=== PATIENT | female | born 1985 | race Two or more races ===

== ENCOUNTER 2017-06-08 20:13 | Emergency (ER) | payer MEDICAID ==
[~2017-06-08] VITALS: Ht 154.9 cm; Wt 96.1 kg
[~2017-06-08 20:13] MED LIST: DIPH1TAB PO; NAPR500T4 PO; NITR100C6 PO; ONDA8TAB9 PO; PHEN-873 PO
[2017-06-08 20:54] LABS: CLARITY,URINE CLEAR (Clear); COLOR,URINE STRAW (Yellow); GLUCOSE, URINE NEGATIVE (Neg); KETONES,URINE NEGATIVE (Neg); LEUKOCYTE ESTERASE ,URINE NEGATIVE (Neg); NITRITES, URINE NEGATIVE (Neg); OCCULT BLOOD,URINE MODERATE (Neg); PROTEIN,URINE NEGATIVE (Neg); UROBILINOGEN,URINE 0.2 E.U/dL (0.2-1.0)
[2017-06-08 20:55] LABS: UA COLLECTION TYPE CLN CATCH MIDSTREAM
[2017-06-08 20:57] LABS: URINE HCG NEGATIVE (NEG)
[2017-06-08 21:06] LABS: BACTERIA,URINE 1+ /HPF (Neg); SQUAMOUS EPITHELIAL CELL,UR MANY /LPF (FEW); WBC,URINE 0-4 /HPF (0-4)
[2017-06-08 21:07] LABS: MUCUS STRANDS NONE SEEN /LPF (Neg)
[2017-06-08] MEDS ORDERED: PHEN-824 PO (22:22)
[2017-06-08 22:30] VITALS: BP 120/73
== END 2017-06-08 22:31 | disposition home or self-care (01) ==
LOC: ER 20:14
DX: O26.893 Other specified pregnancy related conditions, third trimester (principal); R30.0 Dysuria; Z3A.29 29 weeks gestation of pregnancy
CPT/HCPCS: 81001; 81025; 99284

== ENCOUNTER 2017-11-08 18:54 | Emergency (ER) | payer MEDICAID ==
[~2017-11-08] VITALS: Ht 154.9 cm; Wt 95.0 kg
[~2017-11-08 18:54] MED LIST changes: +NAPR-996 PO; -NAPR500T4 PO; +PHEN-824 PO
[2017-11-08 19:04] VITALS: BP 124/78
[2017-11-08] MEDS ORDERED: hydrocortisone 1% cream 28gm TP SCH (20:00)
[2017-11-08] MEDS ORDERED: cephalexin 500mg capsule PO ONE (20:10)
[2017-11-08] MEDS ORDERED: CEPH-572 PO (20:11)
[2017-11-08] MEDS ORDERED: TRIA15CR61 TOP (20:11)
== END 2017-11-08 20:28 | disposition home or self-care (01) ==
LOC: ER 18:55
DX: L03.115 Cellulitis of right lower limb (principal); L40.9 Psoriasis, unspecified; G43.909 Migraine, unspecified, not intractable, without status migrainosus; Z88.0 Allergy status to penicillin; Z88.1 Allergy status to other antibiotic agents; Z91.030 Bee allergy status; Z91.011 Allergy to milk products; Z91.018 Allergy to other foods; Z79.899 Other long term (current) drug therapy
CPT/HCPCS: 99283

== ENCOUNTER 2018-08-21 12:34 | Emergency (ER) | payer MEDICAID ==
[~2018-08-21] VITALS: Ht 154.9 cm; Wt 99.5 kg
[~2018-08-21 12:34] MED LIST changes: +IBUP-1986 PO; +PHEN-786 PO; -PHEN-873 PO
[2018-08-21 12:43] VITALS: BP 131/75
[2018-08-21] MEDS ORDERED: PERM60CR4 TOP (13:06)
== END 2018-08-21 13:48 | disposition home or self-care (01) ==
LOC: ER 12:35
DX: S90.862A Insect bite (nonvenomous), left foot, initial encounter (principal); S90.861A Insect bite (nonvenomous), right foot, initial encounter; G43.909 Migraine, unspecified, not intractable, without status migrainosus; Z88.0 Allergy status to penicillin; Z91.030 Bee allergy status; Z88.6 Allergy status to analgesic agent; Z91.018 Allergy to other foods; Z88.1 Allergy status to other antibiotic agents; Z88.8 Allergy status to other drugs, medicaments and biological substances; Z79.899 Other long term (current) drug therapy; W57.XXXA Bitten or stung by nonvenomous insect and other nonvenomous arthropods, initial encounter; Y93.89 Activity, other specified; Y92.89 Other specified places as the place of occurrence of the external cause; Y99.8 Other external cause status
CPT/HCPCS: 99283

== ENCOUNTER 2019-07-08 23:22 | Emergency (ER) | payer MEDICAID ==
[~2019-07-08] VITALS: Ht 154.9 cm; Wt 100.0 kg
[~2019-07-08 23:22] MED LIST changes: +PERM60CR4 TOP
[2019-07-09] MEDS ORDERED: ketorolac trometh inj. 60 MG/2 ML VIAL IM ONE (01:20)
[2019-07-09] MEDS ORDERED: HYDROcodone/acetaminophen 5mg/325mg tablet PO ONE (01:20)
[2019-07-09 03:58] LABS: CLARITY,URINE SLIGHTLY CLOUDY (Clear); COLOR,URINE YELLOW (Yellow); GLUCOSE, URINE NEGATIVE (Neg); KETONES,URINE NEGATIVE (Neg); LEUKOCYTE ESTERASE ,URINE NEGATIVE (Neg); NITRITES, URINE NEGATIVE (Neg); OCCULT BLOOD,URINE TRACE-INTACT (Neg); PH,URINE 7.5 (4.8-8.0); PROTEIN,URINE NEGATIVE (Neg); URINE HCG NEGATIVE (NEG); UROBILINOGEN,URINE 0.2 E.U/dL (0.2-1.0)
[2019-07-09 04:15] LABS: UA COLLECTION TYPE CLN CATCH MIDSTREAM
[2019-07-09 04:31] LABS: AMORPHOUS PHOSPHATES 2+; BACTERIA,URINE 1+ /HPF (Neg); MUCUS STRANDS MANY /LPF (Neg); RBC,URINE 0-2 /HPF (0-2); SQUAMOUS EPITHELIAL CELL,UR MODERATE /LPF (FEW); WBC,URINE 0-4 /HPF (0-4)
[2019-07-09] MEDS ORDERED: DICL50TA8 PO (05:22)
[2019-07-09 05:30] VITALS: BP 112/61
== END 2019-07-09 05:34 | disposition home or self-care (01) ==
LOC: ER 23:24
DX: R10.2 Pelvic and perineal pain (principal); R10.32 Left lower quadrant pain; G43.909 Migraine, unspecified, not intractable, without status migrainosus; Z88.0 Allergy status to penicillin; Z91.030 Bee allergy status; Z91.011 Allergy to milk products; Z88.1 Allergy status to other antibiotic agents
CPT/HCPCS: 74176; 81001; 81025; 96372; 99284; J1885

== ENCOUNTER 2021-02-15 23:24 | Emergency (ER) | payer MEDICAID ==
[~2021-02-15] VITALS: Ht 154.9 cm; Wt 97.3 kg
[~2021-02-15 23:24] MED LIST changes: +DICL50TA8 PO
[2021-02-15 23:55] VITALS: BP 111/71
[2021-02-16 00:44] LABS: URINE HCG NEGATIVE (NEG)
[2021-02-16 01:01] LABS: CLARITY,URINE SLIGHTLY CLOUDY (Clear); COLOR,URINE YELLOW (Yellow); GLUCOSE, URINE NEGATIVE (Neg); KETONES,URINE NEGATIVE (Neg); LEUKOCYTE ESTERASE ,URINE NEGATIVE (Neg); NITRITES, URINE NEGATIVE (Neg); OCCULT BLOOD,URINE SMALL (Neg); PROTEIN,URINE NEGATIVE (Neg); UA COLLECTION TYPE CLN CATCH MIDSTREAM; UROBILINOGEN,URINE 0.2 E.U/dL (0.2-1.0)
[2021-02-16 01:24] LABS: MUCUS STRANDS MANY /LPF (Neg); SQUAMOUS EPITHELIAL CELL,UR MODERATE /LPF (FEW)
[2021-02-16 01:26] LABS: BACTERIA,URINE FEW /HPF (Neg); WBC,URINE 0-4 /HPF (0-4)
== END 2021-02-16 01:39 | disposition home or self-care (01) ==
LOC: ER 23:25
DX: R30.0 Dysuria (principal); R31.9 Hematuria, unspecified; G43.909 Migraine, unspecified, not intractable, without status migrainosus; Z88.0 Allergy status to penicillin; Z91.030 Bee allergy status; Z91.018 Allergy to other foods; Z88.1 Allergy status to other antibiotic agents; Z88.8 Allergy status to other drugs, medicaments and biological substances
CPT/HCPCS: 81001; 81025; 87210; 99283; 99284

== ENCOUNTER 2021-03-03 19:19 | Emergency (ER) | payer MEDICAID ==
[~2021-03-03] VITALS: Ht 154.9 cm; Wt 97.3 kg
[2021-03-04 01:07] VITALS: BP 139/91
[2021-03-04] MEDS ORDERED: SULF1TAB49 PO (01:34)
[2021-03-04] MEDS ORDERED: DOXY100C76 PO (01:34)
[2021-03-04] MEDS ORDERED: DOXYCYCLINE 100MG CAPSULE PO STA (01:34)
[2021-03-04] MEDS ORDERED: sulfamethoxazole/trimethoprim DS (800/160mg) tablet PO ONE (01:35)
[2021-03-04] MEDS ORDERED: acetaminophen 325mg tablet PO ONE (01:35)
[2021-03-04] MEDS ORDERED: bacitracin 15gm ointment TP ONE (01:35)
== END 2021-03-04 02:01 | disposition home or self-care (01) ==
LOC: ER 19:20
DX: S81.852A Open bite, left lower leg, initial encounter (principal); G43.909 Migraine, unspecified, not intractable, without status migrainosus; Z88.0 Allergy status to penicillin; Z91.018 Allergy to other foods; Z91.011 Allergy to milk products; Z91.030 Bee allergy status; Z88.6 Allergy status to analgesic agent; W54.0XXA Bitten by dog, initial encounter; Y93.89 Activity, other specified; Y92.89 Other specified places as the place of occurrence of the external cause; Y99.8 Other external cause status
CPT/HCPCS: 99283

== ENCOUNTER 2021-04-25 08:51 | Emergency (ER) | payer MEDICAID ==
[~2021-04-25] VITALS: Ht 154.9 cm; Wt 101.0 kg
[2021-04-25 08:55] VITALS: BP 123/74
== END 2021-04-25 10:43 | disposition home or self-care (01) ==
LOC: ER 08:52
DX: J44.9 Chronic obstructive pulmonary disease, unspecified (principal); G43.909 Migraine, unspecified, not intractable, without status migrainosus; R06.02 Shortness of breath; R05.9 Cough, unspecified; R50.9 Fever, unspecified; Z88.0 Allergy status to penicillin; Z91.030 Bee allergy status; Z88.8 Allergy status to other drugs, medicaments and biological substances; Z91.018 Allergy to other foods; Z79.899 Other long term (current) drug therapy
CPT/HCPCS: 71045; 93005; 99283

== ENCOUNTER 2021-05-08 19:46 | Emergency (ER) | payer MEDICAID ==
[~2021-05-08] VITALS: Ht 154.9 cm; Wt 101.8 kg
[2021-05-08 20:30] VITALS: BP 128/69
[2021-05-08] MEDS ORDERED: benzonatate 100mg capsule PO ONE (20:55)
[2021-05-08] MEDS ORDERED: BENZ-38 PO (20:58)
== END 2021-05-08 21:50 | disposition home or self-care (01) ==
LOC: ER 19:47
DX: R05.9 Cough, unspecified (principal); R09.81 Nasal congestion; R09.82 Postnasal drip; R04.2 Hemoptysis; J44.9 Chronic obstructive pulmonary disease, unspecified; G43.909 Migraine, unspecified, not intractable, without status migrainosus; Z88.0 Allergy status to penicillin; Z91.041 Radiographic dye allergy status; Z91.018 Allergy to other foods; Z91.030 Bee allergy status; Z91.011 Allergy to milk products; Z88.2 Allergy status to sulfonamides; Z79.899 Other long term (current) drug therapy
CPT/HCPCS: 70486; 71045; 99284

== ENCOUNTER 2021-06-20 21:09 | Emergency (ER) | payer MEDICAID ==
[~2021-06-20] VITALS: Ht 154.9 cm; Wt 96.8 kg
[2021-06-20 21:57] LABS: URINE HCG NEGATIVE (NEG)
[2021-06-20 22:26] LABS: CLARITY,URINE SLIGHTLY CLOUDY (Clear); COLOR,URINE YELLOW (Yellow); GLUCOSE, URINE NEGATIVE (Neg); KETONES,URINE TRACE mg/dl (Neg); LEUKOCYTE ESTERASE ,URINE NEGATIVE (Neg); NITRITES, URINE NEGATIVE (Neg); OCCULT BLOOD,URINE NEGATIVE (Neg); PROTEIN,URINE NEGATIVE (Neg); UROBILINOGEN,URINE 0.2 E.U/dL (0.2-1.0)
[2021-06-20 22:27] LABS: UA COLLECTION TYPE CLN CATCH MIDSTREAM
[2021-06-20 22:42] LABS: BACTERIA,URINE 2+ /HPF (Neg); MUCUS STRANDS MANY /LPF (Neg); RBC,URINE NONE SEEN /HPF (0-2); SQUAMOUS EPITHELIAL CELL,UR MANY /LPF (FEW); WBC,URINE 0-4 /HPF (0-4)
[2021-06-20 22:44] VITALS: BP 96/58
[2021-06-21 00:23] LABS: ALANINE AMINOTRANSFERASE 26 U/L (12-78); ALBUMIN 3.5 G/DL (3.4-5.0); ALKALINE PHOSPHATASE 85 IU/L (46-116); ANION GAP 8 (8-16); ASPARTATE AMINO TRANSFERASE 16 U/L (10-37); BILIRUBIN,DIRECT 0.1 MG/DL (0-0.3); BILIRUBIN,TOTAL 0.4 MG/DL (0.1-1.0); BLOOD UREA NITROGEN 13 MG/DL (7-18); BUN/CREATININE RATIO 18.1 (6.6-38.0); CALCIUM 8.9 MG/DL (8.5-10.1); CHLORIDE 106 MMOL/L (99-107); CREATININE 0.72 MG/DL (0.40-0.90); GLUCOSE 111 MG/DL (70-104); LIPASE 212 U/L (73-393); POTASSIUM 3.8 MMOL/L (3.5-5.1); SODIUM 142 MMOL/L (135-145); TOTAL CARBON DIOXIDE 27.9 MMOL/L (24-32); eGFR > 90 ML/MIN
[2021-06-21 00:28] LABS: BASOPHILS # (AUTO) 0.1 X10'3 (0-0.2); BASOPHILS % (AUTO) 1.2 % (0-1); EOSINOPHILS # (AUTO) 0.2 X10'3 (0-0.9); EOSINOPHILS % (AUTO) 2.2 % (0-6); HEMOGLOBIN 13.4 g/dl (12.0-16.0); LYMPHOCYTES # (AUTO) 3.9 X10'3 (1.1-4.8); LYMPHOCYTES % (AUTO) 34.3 % (21-51); MEAN CORPUSCULAR HEMOGLOBIN 26.9 PG (27.0-31.0); MEAN CORPUSCULAR HGB CONC 32.8 g/dL (33.0-36.5); MEAN PLATELET VOLUME 9.1 FL (7.4-10.4); MONOCYTES # (AUTO) 0.9 X10'3 (0-0.9); MONOCYTES % (AUTO) 8.2 % (2-12); NEUTROPHILS # (AUTO) 6.1 X10'3 (1.8-7.7); NEUTROPHILS % (AUTO) 54.1 % (42-75); PLATELET COUNT 323 X10'3 (140-440); RED CELL DISTRIBUTION WIDTH 14.3 % (11.5-14.5); WHITE BLOOD COUNT 11.3 X10'3 (4.5-11.0)
[2021-06-21] MEDS ORDERED: SULF1TAB49 PO (01:02)
[2021-06-21] MEDS ORDERED: sulfamethoxazole/trimethoprim DS (800/160mg) tablet PO ONE (01:05)
== END 2021-06-21 01:15 | disposition home or self-care (01) ==
LOC: ER 21:10
DX: D30.02 Benign neoplasm of left kidney (principal); N39.0 Urinary tract infection, site not specified; G43.909 Migraine, unspecified, not intractable, without status migrainosus; J44.9 Chronic obstructive pulmonary disease, unspecified; Z88.0 Allergy status to penicillin; Z91.030 Bee allergy status; Z88.8 Allergy status to other drugs, medicaments and biological substances; Z88.1 Allergy status to other antibiotic agents
CPT/HCPCS: 36415; 74176; 80048; 80076; 81001; 81025; 83690; 85025; 99284

== ENCOUNTER 2021-07-16 21:58 | Emergency (ER) | payer MEDICAID ==
[~2021-07-16] VITALS: Ht 154.9 cm; Wt 100.7 kg
--- NOTE | 2021-07-16 23:27 | NUR ---
patient in the er with complaitns of left shoulder pain that came ion gradually, denies trauma or falls , staes thatpain is a 6/10 , deneis taking any medication . denies any ortho history
[2021-07-16] MEDS ORDERED: ketorolac trometh inj. 60 MG/2 ML VIAL IM ONE (23:30)
[2021-07-16] MEDS ORDERED: IBUP-1986 PO (23:45)
[2021-07-17 00:02] VITALS: BP 135/78
== END 2021-07-17 00:04 | disposition home or self-care (01) ==
LOC: ER 21:59
DX: M25.511 Pain in right shoulder (principal); G43.909 Migraine, unspecified, not intractable, without status migrainosus; J44.9 Chronic obstructive pulmonary disease, unspecified; Z88.0 Allergy status to penicillin; Z91.030 Bee allergy status; Z88.8 Allergy status to other drugs, medicaments and biological substances; Z88.1 Allergy status to other antibiotic agents; Z79.899 Other long term (current) drug therapy
CPT/HCPCS: 96372; 99284; J1885

== ENCOUNTER 2021-09-27 19:56 | Emergency (ER) | payer MEDICAID ==
[~2021-09-27] VITALS: Ht 154.9 cm; Wt 100.5 kg
--- NOTE | 2021-09-27 22:30 | NUR ---
PT PRESENTS T=WITH POSSIBLE . STATES THAT SHE TOOK A HOME TEST IN AUGUST AND THERE WAS A FAINT LINE, A COUPLE DAYS LATER SHE STARTED BLEEDING. PT STATES THAT SHE HAVE NOT CONFIRMED HER AT [facility], DOES NOT KNOW IF SHE IS MISCARRING OR NOT.
[2021-09-27 22:54] LABS: URINE HCG NEGATIVE (NEG)
[2021-09-27 23:05] LABS: BASOPHILS # (AUTO) 0.1 X10'3 (0-0.2); BASOPHILS % (AUTO) 0.9 % (0-1); EOSINOPHILS # (AUTO) 0.3 X10'3 (0-0.9); EOSINOPHILS % (AUTO) 2.2 % (0-6); HEMATOCRIT 38.9 % (35.0-45.0); HEMOGLOBIN 12.6 g/dl (12.0-16.0); LYMPHOCYTES # (AUTO) 3.6 X10'3 (1.1-4.8); LYMPHOCYTES % (AUTO) 29.9 % (21-51); MEAN CORPUSCULAR HGB CONC 32.4 g/dL (33.0-36.5); MEAN CORPUSCULAR VOLUME 80.1 FL (78-98); MEAN PLATELET VOLUME 8.1 FL (7.4-10.4); MONOCYTES # (AUTO) 1.1 X10'3 (0-0.9); MONOCYTES % (AUTO) 8.9 % (2-12); NEUTROPHILS % (AUTO) 58.1 % (42-75); PLATELET COUNT 332 X10'3 (140-440); RED BLOOD COUNT 4.86 X10'6 (4.20-5.60); RED CELL DISTRIBUTION WIDTH 14.5 % (11.5-14.5)
[2021-09-27 23:20] LABS: ALANINE AMINOTRANSFERASE 20 U/L (12-78); ALBUMIN 3.3 G/DL (3.4-5.0); ALBUMIN/GLOBULIN RATIO 0.9 (1.1-1.5); ALKALINE PHOSPHATASE 82 IU/L (46-116); ANION GAP 6 (8-16); ASPARTATE AMINO TRANSFERASE 16 U/L (10-37); BILIRUBIN,TOTAL 0.4 MG/DL (0.1-1.0); BLOOD UREA NITROGEN 10 MG/DL (7-18); BUN/CREATININE RATIO 15.4 (6.6-38.0); CALCIUM 8.9 MG/DL (8.5-10.1); CHLORIDE 105 MMOL/L (99-107); CREATININE 0.65 MG/DL (0.40-0.90); GLUCOSE 113 MG/DL (70-104); POTASSIUM 3.8 MMOL/L (3.5-5.1); SODIUM 139 MMOL/L (135-145); TOTAL CARBON DIOXIDE 28.1 MMOL/L (24-32); TOTAL PROTEIN 7.1 G/DL (6.4-8.2); eGFR > 90 ML/MIN
[2021-09-27 23:25] LABS: BETA HCG,QUANTITATIVE < 1.0 mIU/ml
[2021-09-28 00:10] VITALS: BP 128/86
== END 2021-09-28 00:11 | disposition home or self-care (01) ==
LOC: ER 19:57
DX: N92.1 Excessive and frequent menstruation with irregular cycle (principal); R42 Dizziness and giddiness; J45.909 Unspecified asthma, uncomplicated; G43.909 Migraine, unspecified, not intractable, without status migrainosus; Z88.0 Allergy status to penicillin; Z91.030 Bee allergy status; Z91.018 Allergy to other foods
CPT/HCPCS: 36415; 80053; 81025; 84702; 85025; 86900; 86901; 99283

== ENCOUNTER 2024-07-10 14:51 | Emergency (ER) | payer MEDICAID ==
[~2024-07-10] VITALS: Ht 154.9 cm; Wt 90.5 kg
[~2024-07-10 14:51] MED LIST changes: +NAPR-1168 PO; -NAPR-996 PO
[2024-07-10 15:07] VITALS: BP 148/48; PULSE 83; TEMP 97.6; O2SAT 98
[2024-07-10 17:29] VITALS: RESP 18
[2024-07-10] MEDS: ketorolac trometh 15mg/ml vial 15 MG/ML ML IM ONE (17:29)
== END 2024-07-10 17:35 | disposition home or self-care (01) ==
LOC: ER 14:52
DX: S39.012A Strain of muscle, fascia and tendon of lower back, initial encounter (principal); S33.5XXA Sprain of ligaments of lumbar spine, initial encounter; J45.909 Unspecified asthma, uncomplicated; G43.909 Migraine, unspecified, not intractable, without status migrainosus; Z88.0 Allergy status to penicillin; Z88.1 Allergy status to other antibiotic agents; Z91.030 Bee allergy status; Z91.041 Radiographic dye allergy status; Z88.8 Allergy status to other drugs, medicaments and biological substances; W10.9XXA Fall (on) (from) unspecified stairs and steps, initial encounter; Y93.89 Activity, other specified; Y92.89 Other specified places as the place of occurrence of the external cause; Y99.8 Other external cause status
CPT/HCPCS: 72100; 72220; 96372; 99284; J1885

== ENCOUNTER → 2024-09-10 | Emergency (ER) | payer MEDICAID ==
[~2024-09-10] VITALS: Ht 154.9 cm; Wt 90.5 kg
[~2024-09-10] MED LIST changes: +LOPE-144 PO; +ONDA-243 PO
[2024-09-10 08:54] VITALS: TEMP 98.3
[2024-09-10] MEDS: HYDROcodone/acetaminophen 5mg/325mg tablet PO ONE (09:27)
[2024-09-10 09:37] VITALS: BP 110/62; PULSE 79; O2SAT 98
--- NOTE | 2024-09-10 09:49 | Physician Documentation ---
History of Present Illness ~ Chief Complaint: Laceration Stated Complaint: TOE LAC Time Seen by MD: 08:58 Primary Medical Doctor: monika ROBLES Presents to the emergency department due to toe pain. Reports that she has opened a laundromat door over her right foot yesterday, and sustained injury and pain to toes two and three when that occurred. She does have superficial open areas to both toes. Early bruising noted DIP deandra. Tetanus Within 5 Years: Yes Medication Reconciliation Allergies: Coded Allergies: Penicillins (Unverified Allergy, Unknown, HIVES, SWELLING, 09/10/24) bee venom protein (honey bee) (Unverified Allergy, Unknown, 07/10/24) honey (Unverified Allergy, Unknown, 07/10/24) iodine (Verified Allergy, Unknown, 07/10/24) lactose (Unverified Allergy, Unknown, 07/10/24) toby (Unverified Allergy, Unknown, 07/10/24) pineapple (Unverified Allergy, Unknown, 07/08/19) clindamycin (Unverified Adverse Reaction, Unknown, VOMITING/DIARRHEA, 07/08/19) Uncoded Allergies: ALMONDS (Allergy, Unknown, 08/04/16) SPIDERS (Allergy, Unknown, 08/04/16) Scheduled Diphenoxylate HCl/Atropine (Lomotil 2.5-0.025 mg Tablet), 1 TAB PO Q6H Ibuprofen (Ibuprofen), 1 TAB PO Q8H Ibuprofen (Ibuprofen), 1 TAB PO Q8H Loperamide HCl (Imodium A-D), 1 TAB PO 5XD Nitrofurantoin Monohyd/M-Cryst (Macrobid 100 mg Capsule), 1 CAP PO Q12H Permethrin (Permethrin), 1 APPLIC TOP ONCE Phenazopyridine HCl (Pyridium), 1 TAB PO Q8H Scheduled PRN Diclofenac Sodium (Diclofenac Sodium), 1 TABLET PO BID PRN for pain Naproxen (Naproxen), 1 TAB PO Q12H PRN for pain ONDANSETRON ODT 4mg tablet (Ondansetron Odt), 1 TAB PO Q6H PRN PRN for nausea/vomiting Ondansetron (Zofran Odt), 8 MG PO QID PRN for nausea/vomiting Phenazopyridine Hcl (Pyridium tablet), 1 TAB PO Q8H PRN for urinary burning Past Medical History Past Medical History: Migraine, Asthma Past Surgical History: no surgical history Last Menstrual Period: August 31, 2024 Alcohol Use: Rarely Drug Use: none Lives In: Home Occupation: employed [employer] ROS The note accurately reflects work and decisions made by me.Qing Sharma - DONNY 09/10/24 09:51 Physical Exam Vital Signs: Temperature: 98.3, Source: Oral, Heart Rate: 79, Respiratory Rate: 15, BP: 110/62, Pulse Oximetry: 98, Weight: 90.450 Physical Exam General: Alert, no apparent distress. HEENT: PERRL, EOMI, no injection, moist mucous membranes. Neck: Full range of motion. Respiratory: Lungs clear, no respiratory distress. Chest: No accessory muscle use. Cardiovascular: Regular rate and rhythm, no murmurs. Gastrointestinal: Soft, nontender, nondistended. Bowels sounds present. Extremities: Reduced/painful ROM to toes 2 and 3 right foot with early ecchymosis around DIP. Superficial open areas to both toes. Neurologic: Oriented x4. Psychiatric: Normal mood and affect. Skin: Normal color, warm and dry. No edema, no ecchymosis. Progress Results/Orders Results/Orders Orders - QING SHARMA NP Foot, Complete (3vw Min) (09/10/24 ) Dressing Orders (09/10/24 10:04) Wound Care Orders (09/10/24 10:04) Completed Orders - QING SHARMA NP Hydrocodone/Apap 5/325mg Tab (Blue 5/32 (09/10/24 09:10) Foot, Complete (3vw Min) (09/10/24 ) Bacitracin Ointment (Bacitracin Ointment (09/10/24 10:05) Medications Received in ER Medications (Trade) Dose Ordered Sig/Isela Route PRN Reason Start Time Stop Time Status Last Admin Dose Admin (Blue 5/325mg tablet) 1 tab ONCE ONCE PO 09/10/24 09:10 09/10/24 09:13 DC 09/10/24 09:27 1 TAB Vital Signs 09/10/24 09/10/24 08:54 09:37 Temp 98.3 Pulse 70 79 Resp 18 15 B/P (MAP) 116/65 110/62 (78) Pulse Ox 99 98 EKG/XRAY/CT/US/VASC/MRI Bone/Soft Tissue X-Ray (Spine) : Additional Comment DIAGNOSTIC RADIOLOGY Patient: KEVEN GARCIA Medical Record: [id number] 1985, Age: 39 Sex: Female Location: ER Patient Status: [facility] ER Service Date/Time: 09/10/24/ Ordering Physician: QING SHARMA NP Exam: FOOT, COMPLETE (3VW MIN) DI FOOT, COMPLETE (3VW MIN), INDICATION: injury to 3/4th toes TECHNICAL DATA: Frontal, oblique and lateral views were obtained of the right foot. COMPARISON: None FINDINGS: No fracture is identified. Joint spaces are maintained. Alignment is anatomic. T he hallux sesamoids appear normal. Soft tissues are within normal limits. IMPRESSION: No acute fracture or dislocation of the right foot. Electronically Signed by:ALIRIO RAZO MD Date & Time: 09/10/24952 Dictated by: ALIRIO RAZO MD Dictation date and time: 09/10/24928 Primary Care Provider: NO PRIMARY CARE PROVIDER cc: QING SHARMA NP ~ Medical Decision Making Differential Dx:Considerations: Include: Abrasion, Avulsion, Contusion, Laceration, Fracture, Hematoma, Neurovascular injury, Retained foreign body Departure Time of Disposition: 10:05 Disposition: 01 HOME / SELF CARE / HOMELESS Impression: Primary Impression: Injury of toe on right foot Condition: Stable Discharge Instructions: How to Change Your Wound Dressing, Musculoskeletal Pain Additional Instructions: Nothing broken on xray. Clean the wounds on your toes daily and dress with bandaids. Pako taping toes together may help reduce the pain. Loose but supportive footwear recommended. Take Ibuprofen or acetaminophen per label instructions as needed for pain. Followup with primary care next week. Return if worse. Referrals: NO PRIMARY CARE PROVIDER (PCP) Education Educated: Patient Educated regarding: diagnosis, treatment, prognosis Signature Scribe Signature: no scribe Attestation: The note accurately reflects work and decisions made by me.Qing Salas NP 09/10/24 09:52 QING SHARMA NP September 10, 2024 09:49
--- NOTE | 2024-09-10 09:56 | RADIOLOGY REPORT ---
DI FOOT, COMPLETE (3VW MIN), INDICATION: injury to 3/4th toes TECHNICAL DATA: Frontal, oblique and lateral views were obtained of the right foot. COMPARISON: None FINDINGS: No fracture is identified. Joint spaces are maintained. Alignment is anatomic. The hallux sesamoids a ppear normal. Soft tissues are within normal limits. IMPRESSION: No acute fracture or dislocation of the right foot.
[2024-09-10 10:26] VITALS: RESP 16
[2024-09-10] MEDS: bacitracin 15gm ointment TP ONE (10:26)
== END | disposition home or self-care (01) ==
LOC: ER 08:51
DX: S90.121A Contusion of right lesser toe(s) without damage to nail, initial encounter (principal); J45.909 Unspecified asthma, uncomplicated; G43.909 Migraine, unspecified, not intractable, without status migrainosus; Z88.0 Allergy status to penicillin; Z91.030 Bee allergy status; Z91.041 Radiographic dye allergy status; Z88.1 Allergy status to other antibiotic agents; Z91.018 Allergy to other foods; Z79.899 Other long term (current) drug therapy; W22.8XXA Striking against or struck by other objects, initial encounter; Y93.89 Activity, other specified; Y92.89 Other specified places as the place of occurrence of the external cause; Y99.8 Other external cause status
CPT/HCPCS: 73630; 99283

== ENCOUNTER 2024-12-23 21:58 | Emergency (ER) | payer MEDICAID ==
[~2024-12-23] VITALS: Ht 154.9 cm; Wt 87.7 kg
--- NOTE | 2024-12-23 23:51 | Physician Documentation ---
History of Present Illness Chief Complaint: Abdominal Pain w/vomiting Stated Complaint: NAUSEA VOMITTING Time Seen by MD: 23:47 Primary Medical Doctor: monika GARCÍA Mode of Arrival: POV HPI 39-year-old female presenting with 3 days of nausea and vomiting and upper abdominal pain She tells me that over the past 3 days she has had frequent uncontrollable vomiting. She states that she then developed pain in her epigastric region as well as a burning pain into her throat. She tried drinking Pepto-Bismol but vomited it up. Nothing else helps. She had not really kept down much food or fluids over the past couple of days. She also reports associated diarrhea. No blood in the vomiting or diarrhea. No fevers or chills. No dysuria. Medication Reconciliation Allergies: Coded Allergies: Penicillins (Unverified Allergy, Unknown, HIVES, SWELLING, 09/10/24) bee venom protein (honey bee) (Unverified Allergy, Unknown, 07/10/24) honey (Unverified Allergy, Unknown, 07/10/24) iodine (Verified Allergy, Unknown, 07/10/24) lactose (Unverified Allergy, Unknown, 07/10/24) toby (Unverified Allergy, Unknown, 07/10/24) pineapple (Unverified Allergy, Unknown, 07/08/19) clindamycin (Unverified Adverse Reaction, Unknown, VOMITING/DIARRHEA, 07/08/19) Uncoded Allergies: ALMONDS (Allergy, Unknown, 08/04/16) SPIDERS (Allergy, Unknown, 08/04/16) Scheduled Diphenoxylate HCl/Atropine (Lomotil 2.5-0.025 mg Tablet), 1 TAB PO Q6H Ibuprofen (Ibuprofen), 1 TAB PO Q8H Ibuprofen (Ibuprofen), 1 TAB PO Q8H Loperamide HCl (Imodium A-D), 1 TAB PO 5XD Nitrofurantoin Monohyd/M-Cryst (Macrobid 100 mg Capsule), 1 CAP PO Q12H Permethrin (Permethrin), 1 APPLIC TOP ONCE Phenazopyridine HCl (Pyridium), 1 TAB PO Q8H Scheduled PRN Diclofenac Sodium (Diclofenac Sodium), 1 TABLET PO BID PRN for pain Naproxen (Naproxen), 1 TAB PO Q12H PRN for pain ONDANSETRON ODT 4mg tablet (Ondansetron Odt), 1 TAB PO Q6H PRN PRN for nausea/vomiting ONDANSETRON ODT 4mg tablet (Ondansetron Odt), 1 TAB PO Q6H PRN PRN for nausea/vomiting Ondansetron (Zofran Odt), 8 MG PO QID PRN for nausea/vomiting Phenazopyridine Hcl (Pyridium tablet), 1 TAB PO Q8H PRN for urinary burning Past Medical History Past Medical History: Migraine, Asthma Past Surgical History: no surgical history Alcohol Use: Rarely Drug Use: none Lives In: Home Occupation: employed Review of Systems Constitutional: Denies: fever Gastrointestinal: Reports: abdominal pain, nausea, vomiting, diarrhea Physical Exam Vital Signs: Temperature: 97.7, Source: Temporal, Heart Rate: 80, Respiratory Rate: 16, BP: 114/67, Pulse Oximetry: 96, Weight: 87.650 Oxygen Flow Rate: 0 Physical Exam General: This is a pleasant and overall well-appearing young female, mother at bedside HEENT: Atraumatic, oropharynx appears dry Heart: Regular rate and rhythm, normal-appearing peripheral perfusion Lungs: normal work of breathing, normal oxygen saturation on room air Abdomen: Soft, nondistended, she does have focal tenderness to palpation in the epigastric region, otherwise nontender, no rebound or guarding Neuro: Alert and oriented, no focal deficits Psychiatric: Calm and cooperative with exam Progress Results/Orders Results/Orders Vital Signs 12/23/24 12/23/24 12/23/24 22:16 23:07 23:10 Temp 97.7 Pulse 77 80 Resp 18 18 16 B/P (MAP) 114/54 114/67 (83) Pulse Ox 95 96 O2 Flow Rate 0 0 Medical Decision Making Additional Comments Differential includes food poisoning, viral syndrome, gastritis, pancreatitis, hepatitis, UTI, colitis Assessment The patient presents with nausea vomiting and diarrhea. She also has some epigastric pain with burning in her throat. Her laboratory testing is unremark able, no evidence of a dangerous intra-abdominal inflammatory process. Per her history and exam I suspect viral gastroenteritis. Urinalysis does not clearly show a UTI, and she has no urinary symptoms. Urine culture pending. She was given symptomatic treatment with good improvement and was then able to tolerate oral fluids. I did discuss further testing including a CT scan of the abdomen, which she was feeling better and requested to go home. She will be discharged home with Zofran and symptomatic treatment. Strict return precautions given. Departure Time of Disposition: 03:39 Disposition: 01 HOME / SELF CARE / HOMELESS Impression: Primary Impression: Nausea vomiting and diarrhea Condition: Improved Discharge Instructions: Viral Gastroenteritis, Adult, [id number] Referrals: NO PRIMARY CARE PROVIDER (PCP) Prescriptions ONDANSETRON ODT 4mg tablet (ONDANSETRON ODT) 4 Mg Tab.rapdis 1 TAB PO Q6H PRN PRN for nausea/vomiting for 4 Days, #16 TAB 0 Refills Prov: ROLLY BURNETTE MD 12/24/24 Education Educated: Patient, Family Educated regarding: diagnosis, treatment, need for follow up Signature Scribe Signature: serafin Attestation: ROLLY Carr MD Dec 23, 2024 23:51
[2024-12-24] MEDS: normal saline 1000ML IV soln IVB ONE ×2 (00:44→02:30)
[2024-12-24] MEDS: ondansetron/PF 4mg/2ml inj IV ONE (00:44)
[2024-12-24 00:51] LABS: MEAN PLATELET VOLUME 8.0 FL (7.4-10.4); RED CELL DISTRIBUTION WIDTH 15.0 % (11.5-14.5)
[2024-12-24 01:05] LABS: CREATININE 0.61 MG/DL (0.40-0.90); TOTAL CARBON DIOXIDE 28.7 MMOL/L (24-32); eCRCL 92 ML/MIN; eGFR > 90 ML/MIN
[2024-12-24] MEDS: mag hydrox/Alum hydrox/simeth 30ml oral suspension PO ONE (01:43)
[2024-12-24] MEDS: LIDOcaine 2% Viscous 15ml cup MM PRN (01:43)
[2024-12-24] MEDS: ketorolac trometh 15mg/ml vial 15 MG/ML ML IV ONE (02:32)
[2024-12-24 02:34] LABS: LEUKOCYTE ESTERASE ,URINE NEGATIVE (Neg); NITRITES, URINE POSITIVE (Neg); OCCULT BLOOD,URINE SMALL (Neg)
[2024-12-24 02:44] LABS: UA COLLECTION TYPE VOIDED
[2024-12-24 02:47] LABS: CAL OXALATE CRYSTALS 4+ /HPF (NEGATIVE); MUCUS STRANDS MANY /LPF (Neg); SQUAMOUS EPITHELIAL CELL,UR MANY /LPF (FEW)
[2024-12-24] MEDS ORDERED: ONDA-243 PO (03:41)
[2024-12-24 03:50] VITALS: BP 105/63; PULSE 90; RESP 16; TEMP 97.9; O2SAT 97
== END 2024-12-24 03:55 | disposition home or self-care (01) ==
LOC: ER 21:59
DX: R11.2 Nausea with vomiting, unspecified (principal); R19.7 Diarrhea, unspecified; R10.13 Epigastric pain; J45.909 Unspecified asthma, uncomplicated; Z88.0 Allergy status to penicillin; Z88.1 Allergy status to other antibiotic agents; Z88.8 Allergy status to other drugs, medicaments and biological substances; Z91.030 Bee allergy status
CPT/HCPCS: 36415; 80053; 81001; 83690; 85025; 96361; 96365; 96375; 99285; J0780; J1200; J1885; J2405; J2470; J7030